=== PATIENT | female | born 2000 | race Caucasian/White ===

== ENCOUNTER → 2024-03-01 09:39 | Outpatient (CLI) | payer BC, SELFPAY | PROVIDERS: PCP Physician Assistant Medical; Visit Provider Physician Assistant Medical | DX: R21 Rash and other nonspecific skin eruption (principal); F32.A Depression, unspecified; N89.8 Other specified noninflammatory disorders of vagina; R53.83 Other fatigue; N76.0 Acute vaginitis; Z87.440 Personal history of urinary (tract) infections | CPT/HCPCS: 87086 ==

== ENCOUNTER → 2024-05-23 16:59 | Outpatient (CLI) | payer BC, SELFPAY ==
[2024-05-24 21:34] LABS: Urine N gonorrhoeae NOT DETECTED
[2024-05-24 21:37] LABS: Urine Chlamydia NOT DETECTED
== END ==
PROVIDERS: PCP Physician Assistant Medical; Visit Provider Family Medicine
DX: N76.0 Acute vaginitis (principal)
CPT/HCPCS: 87491; 87591

== ENCOUNTER → 2024-06-30 11:40 | Outpatient (CLI) | payer BC, SELFPAY ==
[2024-06-30 19:37] LABS: Influenza A - CEPHEID Flu A POSITIVE (NEGATIVE); Influenza B - CEPHEID Flu B NEGATIVE (NEGATIVE); Respiratory Syncytial Virus Negative (Negative)
[2024-06-30 19:40] LABS: COVID-19 CEPHEID 4-PLEX PCR Negative (Negative)
== END ==
PROVIDERS: PCP Physician Assistant Medical; Visit Provider Physician Assistant Medical
DX: J06.9 Acute upper respiratory infection, unspecified (principal)
CPT/HCPCS: 0241U

== ENCOUNTER → 2024-07-13 13:31 | Outpatient (CLI) | payer BC, SELFPAY ==
[2024-07-13 18:32] LABS: Hematocrit 40.7 % (36-46); Hemoglobin 13.5 g/dL (12.0-16.0); Mean Corpuscular HGB Conc 33.3 % (30-36); Mean Corpuscular Hemoglobin 28.4 PG (26-34); Mean Corpuscular Volume 85.5 fL (80-100); Platelet Count 389 X10^3/uL (150-400); Red Blood Cell Count 4.76 X10^6/uL (4.0-5.2); Red Cell Distribution Width 13.8 % (11.6-14.8); White Blood Cell Count 9.8 X10^3/uL (4.5-11.0)
[2024-07-13 18:39] LABS: Alanine Aminotransferase 14 IU/L (<35); Albumin 4.7 g/dL (3.5-5.0); Albumin Globulin Ratio 1.5 (1.0-2.8); Alkaline Phosphatase 73 U/L (38-126); Aspartate Aminotransferase 23 IU/L (14-36); BUN Creatinine Ratio 11.7 (6-22); Bilirubin Total 0.3 mg/dL (0.2-1.3); Blood Urea Nitrogen 9 mg/dL (7-17); Calcium 9.7 mg/dL (8.4-10.2); Carbon Dioxide 28 mmol/L (22-32); Chloride 101 mmol/L (98-107); Estimated Glomerular Filt Rate > 60 mL/min (>60); Globulin 3.1 g/dL (1.7-4.1); Glucose 98 mg/dL (70-100); HEMOLYSIS < 15 (0-50); Potassium 4.1 mmol/L (3.4-5.1); Sodium 140 mmol/L (137-145); Total Protein 7.8 g/dL (6.3-8.2)
[2024-07-13 19:10] LABS: TSH w/ Reflex to FT4 1.67 uIU/mL (0.47-4.68)
[2024-07-16 21:07] LABS: Alder IgE <0.10 kU/L (Class 0); Box Elder IgE <0.10 kU/L (Class 0); Cat Dander IgE <0.10 kU/L (Class 0); Cockroach IgE <0.10 kU/L (Class 0); Cottonwood IgE <0.10 kU/L (Class 0); D farinae IgE <0.10 kU/L (Class 0); D pteronyssinus IgE <0.10 kU/L (Class 0); Dog Dander IgE <0.10 kU/L (Class 0); Elm Tree IgE <0.10 kU/L (Class 0); IgE Alternaria alternata <0.10 kU/L (Class 0); IgE Aspergillus fumigatus <0.10 kU/L (Class 0); IgE Aureobasidi pullulans <0.10 kU/L (Class 0); IgE Candida albicans <0.10 kU/L (Class 0); IgE Cladosporium herbarum <0.10 kU/L (Class 0); IgE Epicoccum purpur <0.10 kU/L (Class 0); IgE Fusarium proliferatum <0.10 kU/L (Class 0); IgE Mucor racemosus <0.10 kU/L (Class 0); IgE Penicillium chrysogen <0.10 kU/L (Class 0); IgE Phoma betae <0.10 kU/L (Class 0); IgE Setomelanomma rostrat <0.10 kU/L (Class 0); IgE Stemphylium herbarum <0.10 kU/L (Class 0); Immunoglobulin E 12 IU/mL (6-495); Mountain Cedar IgE <0.10 kU/L (Class 0); Mouse Urine Proteins IgE <0.10 kU/L (Class 0); Nettle IgE <0.10 kU/L (Class 0); Oak Tree IgE <0.10 kU/L (Class 0); Pigweed, Common IgE <0.10 kU/L (Class 0); Ragweed, Short <0.10 kU/L (Class 0); Sheep Sorrel IgE <0.10 kU/L (Class 0); Silver Birch IgE <0.10 kU/L (Class 0); Timothy Grass IgE <0.10 kU/L (Class 0); Walnut Allery IgE < 0.10 kU/L (Class 0); White ash IgE <0.10 kU/L (Class 0)
== END ==
PROVIDERS: PCP Physician Assistant Medical; Visit Provider Physician Assistant Medical
DX: J32.9 Chronic sinusitis, unspecified (principal); F32.A Depression, unspecified; R21 Rash and other nonspecific skin eruption; R53.83 Other fatigue; J02.9 Acute pharyngitis, unspecified
CPT/HCPCS: 80053; 82785; 84443; 85027; 86003

== ENCOUNTER → 2024-07-30 13:54 | Outpatient (CLI) | payer BC, SELFPAY ==
--- NOTE | 2024-07-30 13:55 | DI.CT.S_ITS ---
PROCEDURE: CT SINUS SCREEN WO CON INDICATIONS: recurrent visits for sinusitis TECHNIQUE: Noncontrast 3.0 mm axial images acquired from the frontal sinuses to the mid-sella, with coronal and sagittal reformats. For radiation dose reduction, the following was used: automated exposure control, adjustment of mA and/or kV according to patient size. COMPARISON: None. FINDINGS: Image quality: Excellent. Maxillary Sinuses: There is bilateral maxillary sinus mucosal thickening, left greater than right. There is a large air-fluid level in the left maxillary sinus and a small air-fluid level in the right maxillary sinus. Ethmoid Air Cells: Subtotal opacification of the ethmoids with sparing of some posterior air cells. There is mild bony expansion and bony remottling. Findings are consistent with chronic sinusitis. Sphenoid Sinuses: There is some mucosal thickening in both sphenoid sinuses. No air-fluid levels. Frontal Sinuses: Somewhat hypoaerated. Bilateral mucosal thickening. Ostiomeatal Complexes: Both ostiomeatal complexes are obstructed by soft tissue. No Alok cells. Miscellaneous: Visualized intra-orbital contents are normal. No luca bullosa or paradoxical turbinate curvature. Trace leftward nasal septum deviation with a small left-sided osteophyte off of the nasal septum contributing to a degree of narrowing of the left nasal passage. Right TMJ degenerative change is noted. Bilateral tonsillar pillars are large. There are calcifications in the right tonsillar pillar. IMPRESSION: 1. Extensive chronic sinusitis. All sinuses are involved. 2. Acute, left greater than right bilateral maxillary sinusitis. 3. Both ostiomeatal complexes are obstructed by soft tissue. 4. There is a degree of narrowing of the left nasal passage. 5. Note made of right TMJ degenerative change. 6. Large bilateral tonsillar pillars with calcifications in the right tonsillar pillar. Dictated by: Kevin Haro M.D. on 07/31/2024 at 6:35 Approved by: Kevin Haro M.D. on 07/31/2024 at 6:41
== END ==
PROVIDERS: PCP Physician Assistant Medical; Referring Provider Physician Assistant Medical; Visit Provider Physician Assistant Medical
DX: J32.4 Chronic pansinusitis (principal); J35.1 Hypertrophy of tonsils; J34.89 Other specified disorders of nose and nasal sinuses
CPT/HCPCS: 70486